=== PATIENT | female | born 1965 | race Asian ===

== ENCOUNTER 2016-11-30 14:59 | Inpatient (IN) | payer OTHER ==
[~2016-11-30] VITALS: Ht 154.9 cm; Wt 61.1 kg
[~2016-11-30 14:59] MED LIST: CLON0.5T PO; CYMB1CAP5 PO; NEUR300C PO; TRAM50TA2 PO; TRAZ100T4 PO; XANA0.5T PO; ZANA4TAB PO; ZANT1TAB PO
[2016-11-30] MEDS ORDERED: CELE10TA PO ×2 (15:20→20:32)
[2016-11-30] MEDS ORDERED: WELLTAB38 PO (15:24)
[2016-11-30 16:16] LABS: MEAN CORPUSCULAR HEMOGLOBIN 21.9 pg (27.0-33.0); MEAN CORPUSCULAR HGB CONC 30.7 g/dl (32.0-36.5); MEAN CORPUSCULAR VOLUME 71.5 fl (80.0-96.0); RED CELL DISTRIBUTION WIDTH 13.9 % (11.5-14.5); WHITE BLOOD COUNT 6.1 K/mm3 (4.0-10.0)
[2016-11-30 16:35] LABS: METHADONE URINE NEGATIVE (NEGATIVE)
[2016-11-30 16:44] LABS: ALBUMIN 4.2 GM/DL (3.2-5.2); ALKALINE PHOSPHATASE 91 U/L (45-117); ALT/SGPT 14 U/L (12-78); ANION GAP 8 MEQ/L (8-16); AST/SGOT 11 U/L (15-37); BILIRUBIN,DIRECT < 0.1 MG/DL (0.0-0.2); BILIRUBIN,TOTAL 0.4 MG/DL (0.2-1.0); BLOOD UREA NITROGEN 4 MG/DL (7-18); CARBON DIOXIDE LEVEL 27 MEQ/L (21-32); CHLORIDE LEVEL 103 MEQ/L (98-107); CREATININE FOR GFR 0.91 MG/DL (0.55-1.02); GLOMERULAR FILTRATION RATE > 60.0 (>51); GLUCOSE, FASTING 88 MG/DL (70-105); POTASSIUM SERUM 3.7 MEQ/L (3.5-5.1); SODIUM LEVEL 138 MEQ/L (136-145); TOTAL PROTEIN 7.7 GM/DL (6.4-8.2)
[2016-11-30] MEDS ORDERED: BUPR75TA5 PO ×2 (20:23→20:32)
[2016-11-30 20:32] VITALS: BP 132/80
[2016-11-30] MEDS ORDERED: AMBI12.52 PO (20:32)
[2016-11-30] MEDS ORDERED: GABA-279 PO (20:32)
[2016-11-30] MEDS ORDERED: CLON1TAB PO (20:32)
[2016-11-30] MEDS ORDERED: OLOP1OPD OU (20:32)
[2016-11-30] MEDS ORDERED: FLON1SPR (20:32)
[2016-11-30] MEDS ORDERED: TRAZ100T4 PO (20:32)
[2016-11-30] MEDS ORDERED: VITMTA PO (20:33)
[2016-11-30] MEDS ORDERED: HYDR25T PO (20:33)
[2016-11-30] MEDS ORDERED: FLUTICASONE PROP 0.05% NASAL SPRAY 16 GM (FLONASE) PRN (21:45)
[2016-11-30] MEDS ORDERED: MAALOX 30 ML SUSP *UDC PO PRN (21:45)
[2016-11-30] MEDS ORDERED: hydrOXYzine 25 MG TAB PO PRN (21:45)
[2016-11-30] MEDS ORDERED: GABAPENTIN 100 MG CAP PO PRN (21:45)
[2016-11-30] MEDS: buPROPion 75 MG TAB PO SCH (22:12)
[2016-11-30] MEDS: clonazePAM 1 MG TAB PO SCH (22:13)
[2016-11-30] MEDS: traZODone 100 MG TAB PO SCH (22:13)
[2016-12-01 06:20] VITALS: BP 117/56
[2016-12-01] MEDS ORDERED: CitaloPRAM (CeleXA) 10 MG TABLET PO SCH (09:00)
[2016-12-01] MEDS: MULTIVITAMINS/MINERALS THERAP 1 TAB PO SCH (09:09)
--- NOTE | 2016-12-01 09:51 | HPEPDOC ---
Medical History and Physical Date of Admission Nov 30, 2016 at 19:33 History and Physical PCP: Dr Hina Garrett ATTENDING: Dr. Colton Gayle HPI: 51yoF admitted to [facility] for PTSD, being medically examined today. No acute medical complaints today. Denies any fevers, chills, weakness, fatigue, BURCH, CP, SOB, cough, palpitations, abdominal pain, N/V/D or changes in bowel or bladder habits. PMHx: Anxiety Depression PTSD Fibromyalgia Chronic low back pain RLS GERD Insomnia Tension headache Allergic rhinitis/conjunctivitis PSHX: Bilateral tubal ligation SOCHX: Resides in: [facility] Marital Status: Kids: 1 Employment: Unemployed Tobacco use: Denies ETOH: Denies Illicit Drugs: Denies IV Drug Use: Denies Tattoos done unprofessionally: Denies FAMHX: Mother: , hepatitis Father: , 1977 War related. Siblings: 2 brothers, 4 sisters Alive, one sister with hepatitis C Children: Alive, well ROS: As noted in HPI, otherwise 11pt ROS of systems reviewed and remarkable only for chronic low back pain which she states is currently controlled. She takes gabapentin between 100 mg and 300 mg at bedtime as needed for restless legs. She states she no longer uses tramadol or any opiates as they caused side effects. NSAIDs cause GI upset. She states chronic tension headaches are controlled and she uses Tylenol as needed. She has been told in the past that she has fibromyalgia and if she does a lot of activity in the summertime this tends to flareup. PE: GEN: 51yoF, appears stated age. Well-nourished, well developed. No acute distress. Alert and oriented x 3. Pleasant, interactive. HEENT: Normocephalic, atraumatic. Pupils are equal, round, and reactive to light. Extraocular movements are intact. No nystagmus appreciated. Sclera are nonicteric. Conjunctiva without injection. Nose midline. Nasal turbinates without bogginess. EACs both patent BL. TMs both visualized and santamaria with good cone of light, no bulging or erythema. No facial asymmetry. Moist mucous membranes. Dentition fair. Pharynx pink and moist, no cobblestoning. Neck supple , trachea midline. No lymphadenopathy or thyromegaly appreciated. CHEST: Regular rate and rhythm, +S1, +S2 LUNGS: Clear to auscultation bilaterally. No wheezes, rales, or rhonchi. Breathing appears symmetric and easy. Patient is speaking in full sentences. No accessory muscle use. ABD: Round, soft, non-tender, non-distended. +Bowel sounds throughout. No rebound or guarding. No costovertebral angle tenderness. EXT: Pulses 2+ bilaterally dorsalis pedis and radial. No lower extremity edema appreciated. SKIN: Sobieski, dry, warm. Capillary refill <2sec. No rashes. NEURO: Alert and oriented x 3. Cranial nerves III-XII are intact. No focal deficits appreciated. EK11/27/15 SINUS RHYTHM WITH SINUS ARRHYTHMIA NONSPECIFIC T-WAVE ABNORMALITY SIMILAR 11/27/15 15:22. A&P: 51yoF admitted to [facility] for PTSD 1. Psych. Plan per Psychiatry. EKG on file. 2. Chronic tension headaches. Continue Tylenol as needed. 3. History of fibromyalgia. Continue Tylenol as needed. 4. Follow up with PCP on discharge. 5. Allergic rhinitis. Continue Flonase daily. 6. Restless leg syndrome. Continue gabapentin 100 mg at bedtime as needed. 7. Allergic conjunctivitis. Continue Patanol eyedrops. 8. Add hCG to admission labs. 9. Pt declines screening for Hepatitis stating she has been screened in the past. 10. Chronically low MCV. Nml Hemoglobin. No prior h/o blood disorders. Will check Fe studies, B12, Folate. Consider Peripheral smear pending results. 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 Vital Signs Vital Signs Label Value Date Time Patient Temperature 97.5 degrees F 12/01/16 0620 Temperature Source Tympanic 12/01/16 0620 Pulse 59 12/01/1620 Respiratory Rate 16 bpm 12/01/16619 Blood Pressure Assessment 117/56 (76) 12/01/16619 Bedside Pulse Oximetry 100 % 11/30/162019 Item Value Date Time Oxygen Delivery Method Room Air 11/30/162019 Laboratory Data Labs 24H Laboratory Tests 2 11/30/16 15:56: Acetaminophen Level < 2.0L, Aspartate Amino Transf (AST/SGOT) 11L, Alanine Aminotransferase (ALT/SGPT) 14, Alkaline Phosphatase 91, Total Bilirubin 0.4, Direct Bilirubin < 0.1, Albumin 4.2, Albumin/Globulin Ratio 1.20, Anion Gap 8, Calcium Level 9.0, Ethyl Alcohol Level < 0.003, Glomerular Filtration Rate > 60.0, Salicylates Level < 1.7L, Thyroid Stimulating Hormone (TSH) 0.987, Total Protein 7.7, Urine Amphetamines Screen NEGATIVE, Urine Benzodiazepines Screen NEGATIVE, Urine Opiates Screen NEGATIVE, Urine Barbiturates Screen NEGATIVE, Urine Cannabinoids Screen NEGATIVE, Urine Cocaine Metabolite Screen NEGATIVE, Urine Methadone Screen NEGATIVE, Urine Phencyclidine Screen NEGATIVE CBC/BMP Laboratory Tests 11/30/16 15:56 Red Blood Count 5.60 H, Mean Corpuscular Volume 71.5 L, Mean Corpuscular Hemoglobin 21.9 L, Mean Corpuscular Hemoglobin Concent 30.7 L, Red Cell Distribution Width 13.9 Home Medications Scheduled Bupropion HCl (Bupropion HCl) 75 Mg Tab 75 MG PO DAILY TAKES 4 HOURS AFTER CELEXA, AROUND 12PM Citalopram Hydrobromide (Celexa) 10 Mg Tab 10 MG PO DAILY Clonazepam (Clonazepam) 1 Mg Tab 2 MG PO QHS Multivitamins *[facility] STOCKED* (Thera M Plus *[facility]OCK[facility]*) 1 Tab Tab 1 TAB PO DAILY Trazodone HCl (Trazodone HCl) 100 Mg Tab 100 MG PO QHS Scheduled PRN (Flonase Allergy Relief) 50 Mcg/Act Spr 2 SPRAYS NA DAILY PRN PRN ALLERGIES Bupropion HCl (Bupropion HCl) 75 Mg Tab 75 MG PO DAILY PRN PRN ANXIETY Gabapentin (Gabapentin) 100 Mg Cap 100 MG PO QHS PRN PRN PAIN Hydroxyzine HCl (Hydroxyzine HCl) 25 Mg Tab 25 MG PO PRN PRN PRN ITCHING/ ANXIETY Olopatadine Hydrochloride (Patanol) 100 Drop/5 Ml Soln 1 DROP OU PRN PRN PRN DRY EYES Zolpidem Tartrate (Ambien Cr) 12.5 Mg Tab 12.5 MG PO QHS PRN PRN SLEEP Allergies Coded Allergies: NSAIDs (Verified Allergy, Unknown, UPSET STOMACH, 08/09/15) Flori Loya Dec 01, 2016 09:51
[2016-12-01 10:21] LABS: CONTROL LINE HCG INT CTR LINE PRESENT
[2016-12-01] MEDS: OLOPATADINE 0.1% OPHTH SOL 5ML(PATANOL) OU SCH ×2 (10:26→17:12)
[2016-12-01] MEDS: MOM 30ML SUSPENSION UDC PO PRN (10:26)
[2016-12-01 10:39] LABS: FERRITIN 107 NG/ML (8-252); PERCENT SATURATION 15.3 % (13.2-37.4); TOTAL IRON BINDING CAPACITY 274 UG/DL (250-450)
[2016-12-01 10:45] LABS: FOLATE > 24.0 NG/ML (>5.4); VITAMIN B12 LEVEL 495 PG/ML (247-911)
[2016-12-01] MEDS: buPROPion 75 MG TAB PO SCH (11:55)
[2016-12-01 11:58] VITALS: BP 130/78
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
[2016-12-01] MEDS: ACETAMINOPHEN TAB 650MG DOSE (2X325MG) PO PRN (17:18)
[2016-12-01 18:38] VITALS: BP 134/78
[2016-12-01] MEDS: traZODone 100 MG TAB PO SCH (21:30)
[2016-12-01] MEDS: clonazePAM 1 MG TAB PO SCH (21:30)
[2016-12-02 06:45] VITALS: BP 113/53
[2016-12-02] MEDS: MULTIVITAMINS/MINERALS THERAP 1 TAB PO SCH (08:06)
[2016-12-02] MEDS: CitaloPRAM (CeleXA) 20 MG TAB PO SCH (08:06)
[2016-12-02] MEDS: OLOPATADINE 0.1% OPHTH SOL 5ML(PATANOL) OU SCH ×2 (08:07→16:26)
[2016-12-02] MEDS: ACETAMINOPHEN TAB 650MG DOSE (2X325MG) PO PRN (12:02)
[2016-12-02] MEDS: MOM 30ML SUSPENSION UDC PO PRN (12:03)
--- NOTE | 2016-12-02 13:27 | IPNPDOC ---
[facility] Progress Note Progress Note DATE OF SERVICE: 12/02/16 HISTORY: Patient is a 51-year-old female who indicates she was feeling "overwhelmed" and was experiencing "thoughts for a long time of not wanting the pain of living," presented to emergency room for symptoms of depression, anxiety , and suicidal ideation which patient indicates has worsened since 's departure for [facility]. Manager Of Purchasing met with patient today to assess treatment progress on inpatient unit, patient is observed to be sitting upright calmly in bed, is easily engaged, brighter today. Patient informs specifications writer she feels "a little better" today, indicates she made telephone contact with her last night which helped to reduce symptoms of anxiety. Patient states her indicated he may return within the next week or 2. Patient reported current anxiety level of 2/10, depression 5/10, denied suicidal and homicidal ideation, denied audiovisual hallucinations, denied urge to engage in self-injurious behavior. Patient denies labile mood, impulsivity and symptoms of panic. Patient describes sleep last night as "good,", denied nightmares. Patient indicates energy level remains low, reports challenges with concentration and focus, states appetite is stable. Patient denies symptoms of physical pain and presents with no indication of acute distress at time of interaction. Phone consult completed with patient's previous [facility] outpatient provider, Dr. Aggarwal, who provided additional background information on patient's treatment history. NEW TEST RESULTS: No new results. Labs on admission indicate low MCV, MCH, MCHC , BUN, iron, AST and elevated RBC. PAST MEDICAL/SURGICAL HISTORY: Fibromyalgia, chronic back pain, RLS, GERD, tension headache. Bilateral tubal ligation. EKG 11/27/15 sinus rhythm with sinus arrhythmia and nonspecific T-wave abnormality similar HCG negative UDS negative CURRENT MEDICATIONS: See below MENTAL STATUS EXAMINATION: Patient is a 51-year-old female who is pleasant and cooperative, engageable, exhibits adequate personal hygiene, dressed in hospital clothing, makes fair eye contact, ambulates with steady gait, appears stated age. Speech: Is of normal rate, rhythm, volume, coherent, spontaneous. Language skills are intact. Thought processes: Clear, goal-directed. Thought content: Rational, logical. Abstract reasoning: Adequate Description of associations: Intact. Description of abnormal or psychotic thoughts: denies hallucinations, delusions , preoccupation with violence, homicidal or suicidal ideation, and obsessions. Judgment: Limited. Insight: Poor. Orientation to time, place and person. Recent and remote memory: Appears intact Attention span and concentration: Within normal limits. Language: Normal. Fund of knowledge: Adequate. Mood: "Ah, maybe a little better today, I talked to my and he might be coming home soon." Appears less anxious, less depressed, no mood lability noted. Affect: Constricted, congruent with affect. DIAGNOSES: Major depressive disorder, recurrent, moderate, panic disorder, rule out PTSD ASSESSMENT: Patient is is adjusting to unit, indicates she is attending some groups and has been observed in milieu interacting with select peers. Patient reports slight improvement in symptoms to anxiety and depression which she attributes to having spoken with her and awareness that may be returning home within the next week or 2. Patient denies suicidal or homicidal ideation and verbalizes awareness of how to access supportive services on the unit if necessary. Patient states she wishes to continue discontinuation of Wellbutrin and continue Celexa at increased dose as of this morning, indicates balance of medication regimen remains effective and she denies medication side effects other than pre-existing headache which patient yesterday attributed to Wellbutrin. Manager Of Purchasing discussed patient's hs clonazepam dose which is being prescribed by outpatient provider, educated patient on the risks associated with dose and regular/long-term use of medication, encourage patient to address reduced use/dose with outpatient provider after discharge, patient verbalizes understanding. Manager Of Purchasing and the patient also discussed risks associated with Ambien and hydroxyzine use, medications which are also reportedly prescribed by outpatient provider. Manager Of Purchasing made recommendation the patient discontinue use of Ambien and specifications writer also recommended that hydroxyzine not be taken with Klonopin. Will continue to monitor patient's response to medications, monitor medication side effects, evaluate patient's safety, resolution of suicidal ideation, and discharge readiness. Patient indicates she plans to discharge to home when ready , adds she hopes her will be back from [facility], notes the [place] has been contacted. Patient remains hopeful that her will not be deployed and that he will be released from the [employer]. Patient remains receptive to being provided with information on supportive services through the [employer]. MANAGEMENT PLAN: Continue Celexa 20 mg po a am, trazodone 100 mg po q hs. Patient also takes clonazepam 2 mg po q hs (as ordered by outpatient provider) Encourage patient to consider taking psychotropic medication to address symptoms if appropriate Maintain safety precautions Patient to attend groups and participate in unit programming to develop coping strategies Engage patient in discharge planning process and arrange meeting with support system to ensure safe discharge planning when appropriate Patient to follow up with PCM upon discharge TIME SPENT: 35 minutes Vital Signs Vital Signs Date Time Temp Pulse Resp B/P Pulse Ox O2 Delivery O2 Flow Rate FiO2 12/02/16 06:45 98.3 64 16 113/53 12/01/16 09:58 Room Air 11/30/16 20:20 100 Current Medications Current Medications Acetaminophen (Tylenol Tab) 650 mg Q6HP PRN PO HEADACHE or DISCOMFORT Last administered on 12/02/16 12:02; Start 11/30/16 at 21:45; Stop 12/30/16 at 21:44 Al Hydrox/Mg Hydrox/Simethicone (Mylanta) 30 ml Q4HP PRN PO HEARTBURN/ INDIGESTION; Start 11/30/16 at 21:45; Stop 12/30/16 at 21:44 Bupropion HCl (Wellbutrin) 75 mg DAILY@12 PO Last administered on 12/01/16 11: 55; Start 11/30/16 at 12:00; Stop 12/01/16 at 19:17; Status DC Citalopram Hydrobromide (CeleXA) 10 mg DAILY PO Last administered on 12/01/16 09:09; Start 12/01/16 at 09:00; Stop 12/01/16 at 19:17; Status DC Citalopram Hydrobromide (CeleXA) 20 mg DAILY PO Last administered on 12/02/16 08:06; Start 12/02/16 at 09:00; Stop 01/01/17 at 08:59 Clonazepam (KlonoPIN) 2 mg QHS PO Last administered on 12/01/16 21:30; Start 11/30/16 at 21:00; Stop 12/07/16 at 20:59 Fluticasone Propionate (Flonase 0.05% Nasal Levels) 2 spray DAILYPRN PRN NA ALLERGIES; Start 11/30/16 at 21:45; Stop 12/30/16 at 21:44 Gabapentin (Neurontin) 100 mg QHSP PRN PO PAIN; Start 11/30/16 at 21:45; Stop 12/30/16 at 21:44 Home Med (Med Rec Complete!) ASDIRECTED XX ; Start 11/30/16 at 20:45; Stop at 20:45; Status DC Hydroxyzine HCl (Atarax) 25 mg BIDP PRN PO ANXIETY; Start 11/30/16 at 21:45; Stop 12/30/16 at 21:44 Magnesium Hydroxide (Milk Of Magnesia) 30 ml DAILYPRN PRN PO CONSTIPATION Last administered on 12/02/16 12:03; Start 11/30/16 at 21:45; Stop 12/30/16 at 21:44 Multivitamins (Theragram-M) 1 tab DAILY PO Last administered on 12/02/16 08:06 ; Start 12/01/16 at 09:00; Stop 12/31/16 at 08:59 Olopatadine HCl (Patanol) 1 drop BID@09,17 OU Last administered on 12/02/16 08 :07; Start 12/01/16 at 09:00; Stop 12/31/16 at 08:59 Trazodone HCl (Desyrel) 100 mg QHS PO Last administered on 12/01/16 21:30; Start 11/30/16 at 21:00; Stop 12/30/16 at 20:59 Allergies Coded Allergies: NSAIDs (Verified Allergy, Unknown, UPSET STOMACH, 08/09/15) Angela Griffiths Dec 02, 2016 13:27
[2016-12-02 18:00] VITALS: BP 121/66
[2016-12-02] MEDS: traZODone 100 MG TAB PO SCH (21:31)
[2016-12-02] MEDS: clonazePAM 1 MG TAB PO SCH (21:31)
[2016-12-03 06:28] VITALS: BP 133/77
[2016-12-03] MEDS: MULTIVITAMINS/MINERALS THERAP 1 TAB PO SCH (08:47)
[2016-12-03] MEDS: OLOPATADINE 0.1% OPHTH SOL 5ML(PATANOL) OU SCH ×2 (08:47→16:18)
[2016-12-03] MEDS: CitaloPRAM (CeleXA) 20 MG TAB PO SCH (08:47)
[2016-12-03 10:54] LABS: REASON FOR REVIEW COMPREHENSIVE REVIEW
[2016-12-03 10:55] LABS: MEAN CORPUSCULAR HEMOGLOBIN 21.4 pg (27.0-33.0); MEAN CORPUSCULAR HGB CONC 29.9 g/dl (32.0-36.5); MEAN CORPUSCULAR VOLUME 71.5 fl (80.0-96.0); PLATELET COUNT, AUTOMATED 255 k/mm3 (150-450); RED CELL DISTRIBUTION WIDTH 13.9 % (11.5-14.5); WHITE BLOOD COUNT 5.1 K/mm3 (4.0-10.0)
[2016-12-03] MEDS: OMEPRAZOLE 20 MG CAP PO SCH (11:32)
--- NOTE | 2016-12-03 16:03 | IPNPDOC ---
[facility] Progress Note Progress Note DATE OF SERVICE: 12/03/16 HISTORY: Patient is a 51-year-old female who indicates she was feeling "overwhelmed" and was experiencing "thoughts for a long time of not wanting the pain of living," presented to emergency room for symptoms of depression, anxiety , and suicidal ideation which patient indicates has worsened since 's departure for [facility]. Sports Umpire met with patient today to assess treatment progress on inpatient unit, patient is observed to be resting in bed between groups, is engageable, indicates she feels "better today," reports reduced symptoms of anxiety and depression. Patient states she believes antidepressant is working, she denies audiovisual hallucinations, suicidal and homicidal ideation, and denies urge to engage in self-injurious behavior. Patient initially denies medication side effects, then reports headache which preexisted medication trial , was advised to monitor symptom persistence. Patient reiterates today she is still considering Wellbutrin restart, agrees to let keno writer/runner know if/when ready. Patient informs keno writer/runner she did not speak with her last night, is not sure if he will be sent back from [facility]. Patient denies labile mood, impulsivity and symptoms of panic. Patient indicates sleep is improved, denies nightmares. Patient indicates energy is improving, reports ongoing challenges with concentration and focus, makes no mention of memory loss, states appetite is stable. Patient denies symptoms of physical pain and presents with no indication of acute distress at time of interaction. Phone consult completed with patient's previous [facility] outpatient provider, Dr. Aggarwal, who provided additional background information on patient's treatment history. NEW TEST RESULTS: No new results. Labs on admission indicate low MCV, MCH, MCHC , BUN, iron, AST and elevated RBC. PAST MEDICAL/SURGICAL HISTORY: Fibromyalgia, chronic back pain, RLS, GERD, tension headache. Bilateral tubal ligation. EKG 11/27/15 sinus rhythm with sinus arrhythmia and nonspecific T-wave abnormality similar HCG negative UDS negative 12/03/16 peripheral smear results indicate possibility of thalassemia, PA is aware CURRENT MEDICATIONS: See below MENTAL STATUS EXAMINATION: Patient is a 51-year-old female who is pleasant and cooperative, engageable, exhibits adequate personal hygiene, dressed in hospital clothing, makes fair eye contact, ambulates with steady gait, appears stated age. Speech: Is of normal rate, rhythm, volume, coherent, spontaneous. Language skills are intact. Thought processes: Clear, goal-directed. Thought content: Rational, logical. Abstract reasoning: Adequate Description of associations: Intact. Description of abnormal or psychotic thoughts: denies hallucinations, delusions , preoccupation with violence, homicidal or suicidal ideation, and obsessions. Judgment: Limited. Insight: Poor. Orientation to time, place and person. Recent and remote memory: Appears intact Attention span and concentration: Within normal limits. Language: Normal. Fund of knowledge: Adequate. Mood: "A little better today." Appears less anxious, less depressed, no mood lability noted. Affect: Constricted, congruent with affect. DIAGNOSES: Major depressive disorder, recurrent, moderate, panic disorder, rule out PTSD ASSESSMENT: Patient is is adjusting to unit, indicates she is attending some groups and has been observed in milieu interacting with select peers. Patient reports slight improvement in symptoms to anxiety and depression. Patient denies suicidal or homicidal ideation and verbalizes awareness of how to access supportive services on the unit if necessary. Patient states she wishes to continue on discontinuation of Wellbutrin and continue Celexa at increased dose , indicates rest of medication regimen remains effective and she denies medication side effects other than pre-existing headache which patient yesterday attributed to Wellbutrin. Sports Umpire discussed patient's hs clonazepam dose which is being prescribed by outpatient provider, educated patient on the risks associated with dose and regular/long-term use of benzodiazepine, encouraged patient to address reduced use/dose with outpatient provider after discharge, patient verbalizes understanding. Sports Umpire and the patient also discussed risks associated with Ambien and hydroxyzine use, medications which are also reportedly prescribed by outpatient provider. Sports Umpire made recommendation the patient discontinue use of Ambien and keno writer/runner also recommended that hydroxyzine not be taken with Klonopin. Will continue to monitor patient's response to medications, monitor medication side effects, evaluate patient's safety, resolution of suicidal ideation, and discharge readiness. Patient indicates she plans to discharge to home when ready, adds she hopes her will be back from [facility], reiterates today that the [place] has been contacted. Patient remains hopeful that her will not be deployed and that he will be released from the [employer]. Patient remains receptive to being provided with information on supportive services through the [employer]. MANAGEMENT PLAN: Continue Celexa 20 mg po a am, trazodone 100 mg po q hs. Patient also takes clonazepam 2 mg po q hs (as ordered by outpatient provider) Encourage patient to consider taking psychotropic medication to address symptoms if appropriate Maintain safety precautions Patient to attend groups and participate in unit programming to develop coping strategies Engage patient in discharge planning process and arrange meeting with support system to ensure safe discharge planning when appropriate Patient to follow up with PCM upon discharge TIME SPENT: 35 minutes Vital Signs Vital Signs Date Time Temp Pulse Resp B/P Pulse Ox O2 Delivery O2 Flow Rate FiO2 12/03/16 06:28 97.9 66 16 133/77 12/01/16 09:58 Room Air 11/30/16 20:20 100 Laboratory Data 24H Labs Laboratory Tests 2 12/03/16 10:12: 12/03/16 10:20: Differential Pathologist's Review COMPREHENSIVE REVIEW, Differential Slide Review Report, Peripheral Blood Smear Path Consult PERIPHERAL SMEAR CBC/BMP Laboratory Tests 12/03/16 10:20 Red Blood Count 5.77 H, Mean Corpuscular Volume 71.5 L, Mean Corpuscular Hemoglobin 21.4 L, Mean Corpuscular Hemoglobin Concent 29.9 L, Red Cell Distribution Width 13.9 Current Medications Current Medications Acetaminophen (Tylenol Tab) 650 mg Q6HP PRN PO HEADACHE or DISCOMFORT Last administered on 12/02/16 12:02; Start 11/30/16 at 21:45; Stop 12/30/16 at 21:44 Al Hydrox/Mg Hydrox/Simethicone (Mylanta) 30 ml Q4HP PRN PO HEARTBURN/ INDIGESTION Last administered on 12/03/16 03:29; Start 11/30/16 at 21:45; Stop 12/30/16 at 21:44 Bupropion HCl (Wellbutrin) 75 mg DAILY@12 PO Last administered on 12/01/16 11: 55; Start 11/30/16 at 12:00; Stop 12/01/16 at 19:17; Status DC Citalopram Hydrobromide (CeleXA) 10 mg DAILY PO Last administered on 12/01/16 09:09; Start 12/01/16 at 09:00; Stop 12/01/16 at 19:17; Status DC Citalopram Hydrobromide (CeleXA) 20 mg DAILY PO Last administered on 12/03/16 08:47; Start 12/02/16 at 09:00; Stop 01/01/17 at 08:59 Clonazepam (KlonoPIN) 2 mg QHS PO Last administered on 12/02/16 21:31; Start 11/30/16 at 21:00; Stop 12/07/16 at 20:59 Fluticasone Propionate (Flonase 0.05% Nasal [place]) 2 spray DAILYPRN PRN NA ALLERGIES; Start 11/30/16 at 21:45; Stop 12/30/16 at 21:44 Gabapentin (Neurontin) 100 mg QHSP PRN PO PAIN; Start 11/30/16 at 21:45; Stop 12/30/16 at 21:44 Home Med (Med Rec Complete!) ASDIRECTED XX ; Start 11/30/16 at 20:45; Stop at 20:45; Status DC Hydroxyzine HCl (Atarax) 25 mg BIDP PRN PO ANXIETY; Start 11/30/16 at 21:45; Stop 12/30/16 at 21:44 Magnesium Hydroxide (Milk Of Magnesia) 30 ml DAILYPRN PRN PO CONSTIPATION Last administered on 12/02/16 12:03; Start 11/30/16 at 21:45; Stop 12/30/16 at 21:44 Multivitamins (Theragram-M) 1 tab DAILY PO Last administered on 12/03/16 08:47 ; Start 12/01/16 at 09:00; Stop 12/31/16 at 08:59 Olopatadine HCl (Patanol) 1 drop BID@09,17 OU Last administered on 12/03/16 08 :47; Start 12/01/16 at 09:00; Stop 12/31/16 at 08:59 Omeprazole (PriLOSEC) 40 mg DAILY PO Last administered on 12/03/16 11:32; Start 12/03/16 at 09:00; Stop 01/02/17 at 08:59 Trazodone HCl (Desyrel) 100 mg QHS PO Last administered on 12/02/16 21:31; Start 11/30/16 at 21:00; Stop 12/30/16 at 20:59 Allergies Coded Allergies: NSAIDs (Verified Allergy, Unknown, UPSET STOMACH, 08/09/15) Angela Griffiths Dec 03, 2016 16:03
[2016-12-03 18:00] VITALS: BP 117/68
[2016-12-03] MEDS: traZODone 100 MG TAB PO SCH (20:41)
[2016-12-03] MEDS: clonazePAM 1 MG TAB PO SCH (20:41)
[2016-12-04 06:46] VITALS: BP 109/57
[2016-12-04] MEDS: MULTIVITAMINS/MINERALS THERAP 1 TAB PO SCH (08:09)
[2016-12-04] MEDS: OMEPRAZOLE 20 MG CAP PO SCH (08:09)
[2016-12-04] MEDS: CitaloPRAM (CeleXA) 20 MG TAB PO SCH (08:09)
[2016-12-04] MEDS: OLOPATADINE 0.1% OPHTH SOL 5ML(PATANOL) OU SCH ×2 (08:10→17:34)
[2016-12-04] MEDS: ACETAMINOPHEN TAB 650MG DOSE (2X325MG) PO PRN (09:17)
--- NOTE | 2016-12-04 15:50 | IPN ---
DATE: 12/04/2016 I met with Ms. Edwards. She told me how her father, who had been in the [employer] [facility] [employer], was killed by the [employer] and how difficult it was to be raised under Communism. She described how her mood was low and anxious due to her 's numerous deployments. She described those deployments and stated, "I can't take it anymore." She has a history of depression and previous hospitalizations. Her main complaints today are a headache, which she thinks is due to the Celexa, and she suggested that she stay on Celexa a bit longer to see if the headaches disappear. She states she has a past history of using bupropion (Wellbutrin) and stated that it increased her energy. I added bupropion 150 mg. Patient states she has short-term memory difficulties, but is concerned that she has, "Intermittent explosive disorder," because she has such bad memories of what happened to her in [facility] and in her past. Mood is fair. Speech is normal. No difficulties of thought processes. No loose associations. No abnormal or psychotic thoughts. Her judgment and insight are fair. Fully oriented in three spheres. She says her recent memory is poor, but I cannot really determine if that is true. Her attention and concentration are fair. Full fund of knowledge. Affect is bright and pleasant. Mood is fair. PRESENT MEDICATIONS: Include: - citalopram 20 mg - I have added bupropion XL 150 mg Should she continue to have headaches, she may need to change to another selective serotonin reuptake inhibitor. I will refer this to Angela Suazo.
[2016-12-04 18:00] VITALS: BP 118/60
[2016-12-04] MEDS: clonazePAM 1 MG TAB PO SCH (20:53)
[2016-12-04] MEDS: traZODone 100 MG TAB PO SCH (20:53)
[2016-12-05 06:19] VITALS: BP 126/63
[2016-12-05] MEDS: OLOPATADINE 0.1% OPHTH SOL 5ML(PATANOL) OU SCH ×2 (08:30→17:30)
[2016-12-05] MEDS: MULTIVITAMINS/MINERALS THERAP 1 TAB PO SCH (08:30)
[2016-12-05] MEDS: OMEPRAZOLE 20 MG CAP PO SCH (08:30)
[2016-12-05] MEDS: CitaloPRAM (CeleXA) 20 MG TAB PO SCH (08:30)
[2016-12-05] MEDS ORDERED: buPROPion **XL** TABLET 150MG (WELLBUTRIN XL) PO SCH (09:00)
[2016-12-05 18:00] VITALS: BP 130/64
[2016-12-05] MEDS: traZODone 100 MG TAB PO SCH (22:01)
[2016-12-05] MEDS: clonazePAM 1 MG TAB PO SCH (22:02)
[2016-12-05] MEDS: MOM 30ML SUSPENSION UDC PO PRN (22:03)
[2016-12-06 06:00] VITALS: BP_SYST 109; BP_SYST 113; BP_DIAS 57; BP_DIAS 63
[2016-12-06] MEDS: OMEPRAZOLE 20 MG CAP PO SCH (08:11)
[2016-12-06] MEDS: OLOPATADINE 0.1% OPHTH SOL 5ML(PATANOL) OU SCH ×2 (08:11→16:04)
[2016-12-06] MEDS: buPROPion **XL** TABLET 150MG (WELLBUTRIN XL) PO SCH (08:11)
[2016-12-06] MEDS: CitaloPRAM (CeleXA) 20 MG TAB PO SCH (08:11)
[2016-12-06] MEDS: MULTIVITAMINS/MINERALS THERAP 1 TAB PO SCH (08:11)
[2016-12-06] MEDS ORDERED: buPROPion **XL** TABLET 150MG (WELLBUTRIN XL) PO SCH (09:00)
[2016-12-06 18:00] VITALS: BP 138/86
--- NOTE | 2016-12-06 18:56 | IPN ---
DATE: 12/06/2016 SUBJECTIVE: The patient is a 51-year-old woman with psychiatric history notable for depression and anxiety disorders, who presented to the emergency room with complaints of depression and anxiety as well as suicidal ideation, with worsening of symptoms since her left for [facility] ([facility] Today is her seventh day of inpatient hospital admission and she is seen for ongoing treatment progress reviews. She presents today with no new problems. She relates that she was started on a new medication, bupropion, and that she so far has had no side effects. She reports, however, that she still occasionally feels depressed. No significant sleep disturbance reported and she has been noted to interact normally with others. CURRENT MEDICATIONS: - bupropion 150 mg orally daily, was started on 12/04/2016 - citalopram 20 mg orally daily - trazodone 100 mg orally at bedtime OBSERVATION: She is noted to be alert, calm and cooperative. Her vital signs are stable, with blood pressure of 113/52, pulse 52, respirations 16, temperature 98.1. Her speech is fluent. Thought process is logical. There are no delusional themes or ideas of reference and she denies hallucinations and does not appear to be responding to internal stimuli. Her mood is slightly depressed , affect constricted; however, she indicates that she has been noticing some improvement in her symptoms. She denies suicidal thoughts, plan or intent. ASSESSMENT: The patient is noted to be responding and tolerating her current medications and no overt evidence of her being at eminent risk of danger to self or to others. PLAN: Current treatment will be continued with ongoing reviews and medication adjustments as may be clinically indicated. Ongoing supportive therapy. [facility]
[2016-12-06] MEDS: clonazePAM 1 MG TAB PO SCH (20:56)
[2016-12-06] MEDS ORDERED: traZODone 50 MG TAB PO SCH (21:00)
[2016-12-07 06:00] VITALS: BP 120/60
[2016-12-07] MEDS: OLOPATADINE 0.1% OPHTH SOL 5ML(PATANOL) OU SCH (08:05)
[2016-12-07] MEDS: MULTIVITAMINS/MINERALS THERAP 1 TAB PO SCH (08:05)
[2016-12-07] MEDS: buPROPion **XL** TABLET 150MG (WELLBUTRIN XL) PO SCH (08:05)
[2016-12-07] MEDS: CitaloPRAM (CeleXA) 20 MG TAB PO SCH (08:05)
[2016-12-07] MEDS: OMEPRAZOLE 20 MG CAP PO SCH (08:05)
[2016-12-07] MEDS ORDERED: traZODone 100 MG TAB PO PRN (14:00)
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
[2016-12-07] MEDS ORDERED: CELE20TA PO ×2 (14:49→16:09)
[2016-12-07] MEDS ORDERED: BUPR150T3 PO (16:09)
== END 2016-12-07 16:32 | disposition home or self-care (01) | DRG 885 ==
LOC: M ED 17:18 → M ED INP 19:33 → M PSY 20:28
PROVIDERS: ADMIT Psychiatry & Neurology Psychiatry; ATTEND Psychiatry & Neurology Psychiatry
DX: F33.1 Major depressive disorder, recurrent, moderate (principal); F41.0 Panic disorder [episodic paroxysmal anxiety]; M79.7 Fibromyalgia; K21.9 Gastro-esophageal reflux disease without esophagitis; G25.81 Restless legs syndrome; M54.5 Low back pain; G47.00 Insomnia, unspecified; F43.10 Post-traumatic stress disorder, unspecified; J30.9 Allergic rhinitis, unspecified; H10.45 Other chronic allergic conjunctivitis; G44.229 Chronic tension-type headache, not intractable; Z88.6 Allergy status to analgesic agent; Z79.899 Other long term (current) drug therapy